=== PATIENT | male | born 1990 | race Caucasian/White ===

== ENCOUNTER 2020-03-08 11:29 | Emergency (ER) | payer OTHER ==
[~2020-03-08] VITALS: Ht 180.3 cm; Wt 81.6 kg
--- NOTE | 2020-03-08 11:39 | NUR ---
ED Nurse Note: Patient walked in to ED from home left leg pain x6 days ago. Denies fall/ injury. Pt stated that he used to sleep in his car x2 months. Pt able to walk with minimal pain.
--- NOTE | 2020-03-08 12:15 | NUR ---
ED Nurse Note: US initiated in the room.
--- NOTE | 2020-03-08 12:42 | Emergency Room Report ---
History of Present Illness General Chief Complaint: Lower Extremity Injury Source: Patient Present Illness HPI 29-year-old male presents ED complaining of left calf pain. Pain is dull, 7 out of 10, nonradiating. States that there was no fall or injury but he was sleeping in his car for a few days and believes that perhaps based on the way he was sleeping he caused the pain in his calf. Denies chest pain or shortness of breath. No other aggravating relieving factors. 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 - 02/29/20 COVID-19 Screening: Negative COVID-19 COVID-19 Testing Source: n Patient History Past Medical History: none Past Surgical History: none Pertinent Family History: none Social History: Denies: smoking, alcohol use, drug use Immunizations: UTD Reviewed Nursing Documentation: PMH: Agreed; PSxH: Agreed Nursing Documentation-PMH Past Medical History: No Stated History Review of Systems All Other Systems: negative except mentioned in HPI Physical Exam Vital Signs Date Time Temp Pulse Resp B/P (MAP) Pulse Ox O2 Delivery O2 Flow Rate FiO2 03/08/20 11:35 98.4 115 19 113/86 (95) 97 Sp02 EP Interpretation: reviewed, normal General Appearance: no apparent distress, alert, GCS 15, non-toxic Head: normocephalic, atraumatic Eyes: bilateral eye normal inspection, bilateral eye PERRL ENT: hearing grossly normal, normal pharynx, no angioedema, normal voice Neck: full range of motion, supple/symm/no masses Respiratory: chest non-tender, lungs clear, normal breath sounds, speaking full sentences Cardiovascular #1: regular rate, rhythm, no edema Cardiovascular #2: 2+ carotid (R), 2+ carotid (L), 2+ radial (R), 2+ radial (L) , 2+ dorsalis pedis (R), 2+ dorsalis pedis (L) Gastrointestinal: normal bowel sounds, non tender, soft, non-distended, no guarding, no rebound Rectal: deferred Genitourinary: normal inspection, no CVA tenderness Musculoskeletal: back normal, normal range of motion, calf tenderness, gait/ station normal Neurologic: alert, motor strength/tone normal, oriented x3, sensory intact, responsive, speech normal Psychiatric: judgement/insight normal, memory normal, mood/affect normal, no suicidal/homicidal ideation Reflexes: 3+ bicep (R), 3+ bicep (L), 3+ tricep (R), 3+ tricep (L), 3+ knee (R) , 3+ knee (L) Lymphatic: no adenopathy Medical Decision Making Diagnostic Impression: Primary Impression: DVT (deep venous thrombosis) Qualified Codes: I82.402 - Acute embolism and thrombosis of unspecified deep veins of left lower extremity ER Course Hospital Course 29-year-old male presents ED with left leg pain and swelling. Differential diagnoses include: DVT, cellulitis, contusion, abscess Clinical course Patient placed on stretcher after initial history and physical I ordered pain medication and DVT ultrasound. There is evidence of acute DVT in LLE Labs reviewed- electrolytes okay, hemoglobin/hematocrit stable, coags ok Patient given Lovenox in ED. I explain to patient he should be admitted. Patient admitted to Dr Mosquera service I. I feel this is a highly complex case requiring extensive working including EKG/Rhythm strip, Xray/CT/US, Blood/urine lab work, repeat exams while in ED, and administration of strong opiates/narcotics for pain control, admission to hospital or close patient follow up. Diagnosis - DVT admitted to floor in serious condition Labs Test 03/08/20 13:00 White Blood Count 9.7 K/UL (4.8-10.8) Red Blood Count 5.01 M/UL (4.70-6.10) Hemoglobin 14.8 G/DL (14.2-18.0) Hematocrit 41.7 % (42.0-52.0) Mean Corpuscular Volume 83 FL (80-99) Mean Corpuscular Hemoglobin 29.6 PG (27.0-31.0) Mean Corpuscular Hemoglobin Concent 35.6 G/DL (32.0-36.0) Red Cell Distribution Width 10.0 % (11.6-14.8) Platelet Count 278 K/UL (150-450) Mean Platelet Volume 7.0 FL (6.5-10.1) Neutrophils (%) (Auto) 73.5 % (45.0-75.0) Lymphocytes (%) (Auto) 14.1 % (20.0-45.0) Monocytes (%) (Auto) 11.5 % (1.0-10.0) Eosinophils (%) (Auto) 0.2 % (0.0-3.0) Basophils (%) (Auto) 0.7 % (0.0-2.0) Prothrombin Time 11.7 SEC (9.30-11.50) Prothromb Time International Ratio 1.1 (0.9-1.1) Activated Partial Thromboplast Time 28 SEC (23-33) Sodium Level 139 MMOL/L (136-145) Potassium Level 4.5 MMOL/L (3.5-5.1) Chloride Level 100 MMOL/L (98-107) Carbon Dioxide Level 27 MMOL/L (21-32) Anion Gap 12 mmol/L (5-15) Blood Urea Nitrogen 8 mg/dL (7-18) Creatinine 1.2 MG/DL (0.55-1.30) Estimat Glomerular Filtration Rate > 60 mL/min (>60) Glucose Level 99 MG/DL (74-106) Calcium Level 9.7 MG/DL (8.5-10.1) Total Bilirubin 1.4 MG/DL (0.2-1.0) Direct Bilirubin 0.5 MG/DL (0.0-0.3) Aspartate Amino Transf (AST/SGOT) 25 U/L (15-37) Alanine Aminotransferase (ALT/SGPT) 33 U/L (12-78) Alkaline Phosphatase 72 U/L (46-116) Total Protein 7.9 G/DL (6.4-8.2) Albumin 4.2 G/DL (3.4-5.0) Globulin 3.7 g/dL Albumin/Globulin Ratio 1.1 (1.0-2.7) CT/MRI/US Diagnostic Results CT/MRI/US Diagnostic Results : Imaging Test Ordered: Venous DVT Impression Impression: Positive for evidence of acute deep venous thrombosis in the upstream neural vein, the popliteal vein, and posterior tibial vein Last Vital Signs Date Time Temp Pulse Resp B/P (MAP) Pulse Ox O2 Delivery O2 Flow Rate FiO2 03/08/20 12:25 98.4 03/08/20 11:35 115 19 113/86 (95) 97 Status: improved Disposition: ADMITTED INPATIENT Condition: Serious Referrals: NON PHYSICIAN (PCP) Ignacio Galan MD March 08, 2020 12:41
--- NOTE | 2020-03-08 12:43 | NUR ---
ED Nurse Note: US done at bedside. per US tech Lt leg is positive on DVT. ERMD made aware.
--- NOTE | 2020-03-08 12:48 | NUR ---
ED Nurse Note: ERMD at bedside explaining US results. pt agreed with admitting plans.
--- NOTE | 2020-03-08 13:00 | NUR ---
ED Nurse Note: blood sent to lab.
[2020-03-08 13:03] LABS: BASOPHILS % (AUTO) 0.7 % (0.0-2.0); EOSINOPHILS % (AUTO) 0.2 % (0.0-3.0); HEMATOCRIT 41.7 % (42.0-52.0); HEMOGLOBIN 14.8 G/DL (14.2-18.0); LYMPHOCYTES % (AUTO) 14.1 % (20.0-45.0); MEAN CORPUSCULAR VOLUME 83 FL (80-99); MONOCYTES % (AUTO) 11.5 % (1.0-10.0); NEUTROPHILS % (AUTO) 73.5 % (45.0-75.0); PLATELET COUNT 278 K/UL (150-450); RED BLOOD COUNT 5.01 M/UL (4.70-6.10); WHITE BLOOD COUNT 9.7 K/UL (4.8-10.8)
[2020-03-08] MEDS ORDERED: CYMBALTA30 MG ORAL (13:06)
[2020-03-08] MEDS ORDERED: TRAZODONE HCL100 MG ORAL (13:06)
[2020-03-08 13:14] LABS: ANION GAP 12 mmol/L (5-15); BLOOD UREA NITROGEN 8 mg/dL (7-18); CALCIUM 9.7 MG/DL (8.5-10.1); CARBON DIOXIDE 27 MMOL/L (21-32); CHLORIDE 100 MMOL/L (98-107); CREATININE 1.2 MG/DL (0.55-1.30); INR 1.1 (0.9-1.1); POTASSIUM 4.5 MMOL/L (3.5-5.1); SODIUM 139 MMOL/L (136-145)
--- NOTE | 2020-03-08 13:23 | Diagnostic Imaging Report ---
Indication: Left leg injury and pain Technique: Grayscale and duplex images of the left lower extremity veins Comparison: none Findings: Grayscale and duplex images demonstrate thrombus within the upstream femoral vein and in the popliteal vein an posterior tibial vein, resulting in absence of flow and noncompressibility. The remaining deep venous segments are patent. The remaining calf veins are patent. Impression: Positive for evidence of acute deep venous thrombosis in the upstream neural vein, the popliteal vein, and posterior tibial vein Emergency room physician is already aware
[2020-03-08 13:26] LABS: ALANINE AMINOTRANSFERASE 33 U/L (12-78); ALBUMIN 4.2 G/DL (3.4-5.0); ALBUMIN/GLOBULIN RATIO 1.1 (1.0-2.7); ALKALINE PHOSPHATASE 72 U/L (46-116); ASPARTATE AMINO TRANSFERASE 25 U/L (15-37); BILIRUBIN,TOTAL 1.4 MG/DL (0.2-1.0)
[2020-03-08 13:28] LABS: BILIRUBIN,DIRECT 0.5 MG/DL (0.0-0.3)
[2020-03-08] MEDS ORDERED: Enoxaparin 80mg Inj SUBQ ONE (14:00)
--- NOTE | 2020-03-08 15:03 | NUR ---
Janak estrada in EDM - 03/08/20 at 1504 by SHAQUILLE ED Nurse Note: [facility] chacko has not assigned a nurse. they will call back in 15 minutes.
--- NOTE | 2020-03-08 15:04 | NUR ---
ED Nurse Note: [facility] LUNDBERG has not assigned a nurse yet. they will call us in 15 minutes.
--- NOTE | 2020-03-08 15:22 | NUR ---
ED Nurse Note: nurse is on break. MS unit will call me back in 5 minutes.
--- NOTE | 2020-03-08 15:34 | NUR ---
ED Nurse Note: report given to DRAGAN Mcarthur.
--- NOTE | 2020-03-08 15:36 | NUR ---
ED Nurse Note: pt transferred to NC with WC in stable condition.
--- NOTE | 2020-03-08 16:00 | NUR ---
NURSE NOTES: Patient admitted from ER. VS taken and recorded. No skin issues noted. Ambulatory. A and O x 4. Belongings accounted for. Orders made by Dr Rider, noted and carried out. Oriented to room and call light. HOB elevated. Bed locked in lowest position. Call light within reach. Will continue plan of care.
[2020-03-08] MEDS: Eliquis 5mg tablet ORAL SCH (17:21)
--- NOTE | 2020-03-08 18:00 | NUR ---
NURSE NOTES: Swabbed for VRE, CRE and MRSA, sent to lab.
--- NOTE | 2020-03-08 19:20 | NUR ---
HAND-OFF: Report given to Manoj ARCHIBALD.
[2020-03-08 20:00] VITALS: BP 129/89
--- NOTE | 2020-03-08 20:00 | NUR ---
NURSE NOTES: Received patient awake in bed, AOx4, on room air, no s/s of acute distress, able to make needs known. IV access intact, dressing reinforced. No c/o pain at this time. Ambulatory with steady gait.
[2020-03-09 04:00] VITALS: BP 137/65
[2020-03-09 07:04] LABS: ANION GAP 11 mmol/L (5-15); BLOOD UREA NITROGEN 9 mg/dL (7-18); CALCIUM 9.4 MG/DL (8.5-10.1); CARBON DIOXIDE 27 MMOL/L (21-32); CHLORIDE 104 MMOL/L (98-107); POTASSIUM 4.6 MMOL/L (3.5-5.1); SODIUM 142 MMOL/L (136-145)
[2020-03-09 07:07] LABS: HEMOGLOBIN 15.1 G/DL (14.2-18.0); MEAN CORPUSCULAR VOLUME 83 FL (80-99); PLATELET COUNT 272 K/UL (150-450); RED BLOOD COUNT 5.04 M/UL (4.70-6.10); RED CELL DISTRIBUTION WIDTH 10.2 % (11.6-14.8); WHITE BLOOD COUNT 6.9 K/UL (4.8-10.8)
[2020-03-09 08:00] VITALS: BP 124/65
--- NOTE | 2020-03-09 08:06 | NUR ---
HAND-OFF: Report given to DRAGAN Valverde.
--- NOTE | 2020-03-09 08:07 | NUR ---
NURSE NOTES: Report received from DRAGAN Cordova. Patient received in bed, awake, alert and oriented x 4, verbal and able to make needs known, skin warm and dry to touch, no SOB noted, bed in lowest position with alarm on and breaks engaged, IV line on left AC present, pt is ambulatory with steady gait, will continue to monitor and proceed with plan of care, call light within reach at all times.
[2020-03-09] MEDS: Eliquis 5mg tablet ORAL SCH ×2 (08:22→17:57)
[2020-03-09] MEDS ORDERED: DULoxetine 30mg cap ORAL SCH (09:00)
--- NOTE | 2020-03-09 11:05 | NUR ---
SENIOR TECHNICAL PROJECT MANAGER NOTE SW received a consult for homelessness. SW met w/ pt and assessed his needs. Pt presents as A&O 4x. PT is currently participating residential substance abuse treatment program at [facility] [address] [id number]. Pt reports he was previously participated for 3 months, then discharged spent two months, then re-admitted to the program a week ago. Per pt, he has hx of ETOH and THC abuse. PT is single, never and has no children. Pt is ambulatory w/o DMEs and independent w/ ADLs. Pt is planning to return [facility] upon DC. PT did not share any concerns/needs at this time. Emergency contact: Gabe Dubon (counselor at [facility]) [phone] & Peg(mother living in [facility]) [phone]
--- NOTE | 2020-03-09 11:25 | NUR ---
*-* NO INSURANCE INFORMATION IN THE BAR UNABLE TO SEND CLINICALS OR REVIEWS *-*
--- NOTE | 2020-03-09 11:42 | NUR ---
*-* INSURANCE *-* ALL AVAILABLE CLINICALS HAVE BEEN FAXED TO: JAKE THORPE F: [phone]
[2020-03-09 12:00] VITALS: BP 121/72
--- NOTE | 2020-03-09 14:09 | NUR ---
CASE MANAGEMENT:INITIAL REVIEW 29 YR OLD MALE WALKED IN TO ED FROM HOME CC;LOWER EXTREMITY INJURY SI;DEEP VEIN THROMBOSIS 98.4 115 19 113/86 97% ON RA T-BILI 1.4 PT 11.7 VENOUS DUPLEX~ Positive for evidence of acute deep venous thrombosis in the upstream neural vein, the popliteal vein, and posterior tibial vein IS;IBUPROFEN PO ONCE LOVENOX SUBQ ONCE ADMITTED TO MED SURG @ 1401 ON 03/09/20 MED SURG STATUS DCP;FROM HOME
[2020-03-09 16:00] VITALS: BP 130/72
--- NOTE | 2020-03-09 16:45 | History and Physical Report ---
DATE OF ADMISSION: 03/08/2020 DATE AND TIME SEEN: 03/09/2020 at 8 a.m. CLERK OF SCALES: Danie Rider MD. CHIEF COMPLAINT: Left leg DVT. BRIEF HISTORY: This is a 29-year-old male, who lives in a treatment center complained 1 week swelling of left calf and redness and painful. He has been living 2 months in a car prior to that. Currently came to [place] last night, diagnosed with left leg DVT, and admitted to medical floor. Currently calm, resting in bed, slight left leg pain. No complaint. REVIEW OF SYSTEMS: No chest pain. No shortness of breath. No nausea, vomiting, or diarrhea. PAST MEDICAL HISTORY: Nothing. PAST SURGICAL HISTORY: Nothing. MEDICATIONS: Include enoxaparin, ibuprofen, Eliquis, Seroquel, Cymbalta. ALLERGIES: None. SOCIAL HISTORY: Positive smoking. No alcohol. No intravenous drug abuse. FAMILY HISTORY: Noncontributory. PHYSICAL EXAMINATION: GENERAL: Sitting on bed. Oriented x3, no acute distress. VITAL SIGNS: Temperature is 98 degrees, pulse 73, respirations 20, blood pressure 124/65. CARDIOVASCULAR: No murmur. LUNGS: Distant and clear. ABDOMEN: Bowel sound positive. Nontender. Nondistended. EXTREMITIES: No cyanosis, clubbing, or edema. Left calf area slightly red, swollen, warm, and tender. LABORATORY DATA: Labs at this time show CBC is normal. BMP is normal. INR is 1.1. ASSESSMENT: Left leg DVT. PLAN: 1. Resume home medications. 2. Anticoagulation. 3. Hematology followup. 4. CBC, BMP in the morning. Dean Wright D.O. DR: KIKO JOB#: [id number] CC:
--- NOTE | 2020-03-09 19:12 | NUR ---
HAND-OFF: Report given to DRAGAN Mora.
--- NOTE | 2020-03-09 19:15 | NUR ---
NURSE NOTES: Pt. received from DRAGAN Valverde. Pt. AAOx4, on room air, breathing is even and unlabored, no complaints of pain at this time. IV L AC 20g intact and patent, saline locked. Pt. ambulatory, instructed on use of call light. Bed is low and locked, side rails x2 up, and call light is in reach.
[2020-03-09 20:00] VITALS: BP 133/67
[2020-03-10] VITALS: BP 129/79
[2020-03-10 04:00] VITALS: BP 119/60
[2020-03-10 06:17] LABS: BASOPHILS % (AUTO) 1.1 % (0.0-2.0); EOSINOPHILS % (AUTO) 2.1 % (0.0-3.0); HEMATOCRIT 39.6 % (42.0-52.0); HEMOGLOBIN 14.3 G/DL (14.2-18.0); LYMPHOCYTES % (AUTO) 30.9 % (20.0-45.0); MEAN CORPUSCULAR VOLUME 83 FL (80-99); MONOCYTES % (AUTO) 13.2 % (1.0-10.0); NEUTROPHILS % (AUTO) 52.8 % (45.0-75.0); PLATELET COUNT 272 K/UL (150-450); RED BLOOD COUNT 4.79 M/UL (4.70-6.10); RED CELL DISTRIBUTION WIDTH 10.2 % (11.6-14.8); WHITE BLOOD COUNT 6.8 K/UL (4.8-10.8)
--- NOTE | 2020-03-10 06:22 | NUR ---
NURSE NOTES: Pt. reported having difficulty having a bowel movement, pt. requesting stool softener. Dr. Wright notified, awaiting orders.
[2020-03-10 06:47] LABS: ANION GAP 11 mmol/L (5-15); BLOOD UREA NITROGEN 8 mg/dL (7-18); CALCIUM 9.3 MG/DL (8.5-10.1); CARBON DIOXIDE 27 MMOL/L (21-32); CHLORIDE 103 MMOL/L (98-107); CREATININE 1.2 MG/DL (0.55-1.30); POTASSIUM 4.3 MMOL/L (3.5-5.1); SODIUM 141 MMOL/L (136-145)
--- NOTE | 2020-03-10 07:16 | NUR ---
HAND-OFF: Report given to DRAGAN Davis and DRAGAN Lewis.
--- NOTE | 2020-03-10 07:47 | NUR ---
NURSE NOTES: Received pt sitting in hospital bed eating breakfast. Pt is AAO x 4, ambulatory, on RA with no s/s of distress. Pain at this time is 2/10 to LLE. L AC 20 g pIV saline lock. LBM 03/09/20. Pt states Motrin helps with the pain. Will continue POC.
[2020-03-10 08:00] VITALS: BP 129/76
--- NOTE | 2020-03-10 08:37 | NUR ---
NURSE NOTES: Per pt, he has been receiving Cymbalta at 40 mg and has 30 mg ordered here. Notified Dr. Wright and received order to change Cymbalta to 40 mg.
[2020-03-10] MEDS: Metamucil Pkt ORAL SCH ×2 (08:44→13:00)
[2020-03-10] MEDS: Eliquis 5mg tablet ORAL SCH (08:44)
[2020-03-10] MEDS ORDERED: Docusate 100mg cap ORAL SCH (09:00)
--- NOTE | 2020-03-10 09:50 | NUR ---
NURSE NOTES: Patient stated that he had small amount of bowel movement after taking metamucil but he still feels like he needs to go more.RN contacted Dr. Wright and Dr. Wright said to call Dr. Skaggs. RN left message to Dr. Skaggs.Awaiting for return call.Patient's Abdomen is soft, no pain.
[2020-03-10] MEDS ORDERED: Miralax 17gm pkt ORAL PRN (10:30)
--- NOTE | 2020-03-10 10:47 | General Progress Note ---
Assessment/Plan Problem List: (1) DVT (deep venous thrombosis) ICD Codes: I82.409 - Acute embolism and thrombosis of unspecified deep veins of unspecified lower extremity SNOMED: 532876470 Qualifiers: Qualified Codes: I82.402 - Acute embolism and thrombosis of unspecified deep veins of left lower extremity Assessment/Plan: on Eliquis on colace add prn miralax and one dose of lactulose today will fu Subjective ROS Limited/Unobtainable: Yes Allergies: Coded Allergies: No Known Allergies (Unverified , 03/08/20) Objective Last 24 Hour Vital Signs Date Time Temp Pulse Resp B/P (MAP) Pulse Ox O2 Delivery O2 Flow Rate FiO2 03/10/20 08:00 97.9 70 19 129/76 (93) 98 03/10/20 04:00 97.7 64 18 119/60 (79) 99 03/10/20 00:00 98.1 62 16 129/79 (96) 99 03/09/20 21:00 Room Air 03/09/20 20:00 97.9 69 18 133/67 (89) 100 03/09/20 16:00 97.9 71 20 130/72 (91) 97 03/09/20 12:00 97.7 71 19 121/72 (88) 98 03/09/20 11:27 98.2 Intake and Output 03/09/20 03/10/20 19:00 07:00 Intake Total 300 ml 500 ml Balance 300 ml 500 ml Intake Oral 300 ml 500 ml # Voids 3 3 Laboratory Tests 03/10/20 05:29: White Blood Count 6.8, Red Blood Count 4.79, Hemoglobin 14.3, Hematocrit 39.6L, Mean Corpuscular Volume 83, Mean Corpuscular Hemoglobin 29.8, Mean Corpuscular Hemoglobin Concent 36.0, Red Cell Distribution Width 10.2L, Platelet Count 272, Mean Platelet Volume 6.8, Neutrophils (%) (Auto) 52.8, Lymphocytes (%) (Auto) 30.9, Monocytes (%) (Auto) 13.2H, Eosinophils (%) (Auto) 2.1, Basophils (%) ( Auto) 1.1, Sodium Level 141, Potassium Level 4.3, Chloride Level 103, Carbon Dioxide Level 27, Anion Gap 11, Blood Urea Nitrogen 8, Creatinine 1.2, Estimat Glomerular Filtration Rate > 60, Glucose Level 85, Calcium Level 9.3 Height (Feet): 5 Height (Inches): 11.00 Weight (Pounds): 180 General Appearance: alert EENT: PERRL/EOMI Neck: supple Cardiovascular: normal rate Respiratory/Chest: lungs clear Abdomen: normal bowel sounds, non tender, soft Extremities: swelling Jassi Skaggs MD March 10, 2020 10:47
[2020-03-10] MEDS ORDERED: Lactulose 20gm/30ml UDC ORAL SCH (11:00)
[2020-03-10 12:00] VITALS: BP 125/66
--- NOTE | 2020-03-10 12:22 | General Progress Note ---
Assessment/Plan Problem List: (1) DVT (deep venous thrombosis) ICD Codes: I82.409 - Acute embolism and thrombosis of unspecified deep veins of unspecified lower extremity SNOMED: 190414975 Qualifiers: Qualified Codes: I82.402 - Acute embolism and thrombosis of unspecified deep veins of left lower extremity (2) Constipation ICD Codes: K59.00 - Constipation, unspecified SNOMED: 97990720 Status: unchanged Assessment/Plan: heme gi f/u anticoag laxitives cbc bmp am dc plan if clear Subjective Constitutional: Reports: weakness Allergies: Coded Allergies: No Known Allergies (Unverified , 03/08/20) All Systems: reviewed and negative except above Subjective calm Objective Last 24 Hour Vital Signs Date Time Temp Pulse Resp B/P (MAP) Pulse Ox O2 Delivery O2 Flow Rate FiO2 03/10/20 08:00 97.9 70 19 129/76 (93) 98 03/10/20 04:00 97.7 64 18 119/60 (79) 99 03/10/20 00:00 98.1 62 16 129/79 (96) 99 03/09/20 21:00 Room Air 03/09/20 20:00 97.9 69 18 133/67 (89) 100 03/09/20 16:00 97.9 71 20 130/72 (91) 97 Intake and Output 03/09/20 03/10/20 19:00 07:00 Intake Total 300 ml 500 ml Balance 300 ml 500 ml Intake Oral 300 ml 500 ml # Voids 3 3 Laboratory Tests 03/10/20 05:29: White Blood Count 6.8, Red Blood Count 4.79, Hemoglobin 14.3, Hematocrit 39.6L, Mean Corpuscular Volume 83, Mean Corpuscular Hemoglobin 29.8, Mean Corpuscular Hemoglobin Concent 36.0, Red Cell Distribution Width 10.2L, Platelet Count 272, Mean Platelet Volume 6.8, Neutrophils (%) (Auto) 52.8, Lymphocytes (%) (Auto) 30.9, Monocytes (%) (Auto) 13.2H, Eosinophils (%) (Auto) 2.1, Basophils (%) ( Auto) 1.1, Sodium Level 141, Potassium Level 4.3, Chloride Level 103, Carbon Dioxide Level 27, Anion Gap 11, Blood Urea Nitrogen 8, Creatinine 1.2, Estimat Glomerular Filtration Rate > 60, Glucose Level 85, Calcium Level 9.3 Height (Feet): 5 Height (Inches): 11.00 Weight (Pounds): 180 General Appearance: alert EENT: normal ENT inspection Neck: normal alignment Cardiovascular: normal peripheral pulses, normal rate, regular rhythm Respiratory/Chest: chest wall non-tender, lungs clear, normal breath sounds Abdomen: normal bowel sounds, non tender, soft Extremities: normal inspection Edema: 1+ Leg (L) Edema: trace edema Neurologic: responsive, motor weakness Skin: normal pigmentation, warm/dry Dean Wright DO March 10, 2020 12:22
--- NOTE | 2020-03-10 13:18 | NUR ---
BANKING AND FINANCE INSTRUCTOR NOTE DR MCCALL GAVE ORDER TO DC HOME IF CLEARED BY DR TERAN (HEME). PER DR TERAN, OK TO DC. DC ENTERED ORDERED.
--- NOTE | 2020-03-10 13:29 | NUR ---
DISCHARGE PLANNING CALL MADE TO RODRIGO STOVER, COORDINATOR AT TREATMENT FACILITY WHERE PATIENT CURRENTLY RESIDES. INFORMED OF PATIENTS DISCHARGE. STATES THEY CURRENTLY DO NOT HAVE STAFF TO EMERGENCY DEPT TECH PATIENT. REQUEST IF PATIENT CAN BE PROVIDED TRANSPORTATION VIA TAXI. HOUSE SUP AWARE OF NEED FOR TAXI VOUCHER.
[2020-03-10] MEDS ORDERED: ELIQUIS5 MG PO (14:29)
--- NOTE | 2020-03-10 15:32 | NUR ---
NURSE NOTES: Pt is stable for DC. Pt is AAOx4, independent with all ADLs, ambulatory without assistance. Skin clear and intact wit no s/s of breakdown. Informed pt that per RN conversation with Dr. Rider, Rx will be sent to the pharmacy of his facility [facility]. Pt educated on DVT and medication to be continued at home. Instructed pt to f/u with PCP for continuation of care and report any s/s of bleeding, fever, chest pain, shortness of breath, or worsening of leg swelling to MD. Pt's belongings list reconciled and accounted for. Pt is arranged for transportation pick-up via taxi with voucher approved by vat house supervisor to go back to [facility]. pIV to L FA removed. Pt escorted by RN to lobby for taxi pick-up.
--- NOTE | 2020-03-11 08:41 | Discharge Summary ---
Discharge Summary Discharge Summary _ DATE OF ADMISSION: 03/08/2020 DATE OF DISCHARGE: 03/10/2020 DISCHARGED BY: Dr. Wright REASON FOR ADMISSION: 30 years old male, who lives in treatment center, presented to emergency department complaining of left calf pain. Pain reported as 7 out of 10, nonradiating and dull. Patient denied any fall or injury. Patient reported sleeping in his car for few days. He denied chest pain or shortness of breath. Upon evaluation patient was slightly tachycardic with heart rate 115 , otherwise pulse oximetry was stable on room air. No fever. Laboratory work-up revealed no leukocytosis , stable hemoglobin, hematocrit and platelet count. Stable electrolytes and renal parameters. Glucose 99. Stable LFT. Venous duplex bilateral lower extremity revealed acute DVT popliteal vein and posterior tibial vein left lower extremity. In emergency department patient received Lovenox and admitted to further management. CONSULTANTS: GI specialist Dr Skaggs [facility] COURSE: Patient admitted. Home medication resumed. Eliquis resumed. Patient complained of constipation. Bowel regimen instituted. In addition, one dose of lactulose was given, following by bowel movement. Supportive care provided. Patient to continue Eliquis at the facility. Patient clinically stabilized and was ready for discharge FINAL DIAGNOSES: Acute DVT left lower extremity Constipation DISCHARGE MEDICATIONS: See Medication Reconciliation list. DISCHARGE INSTRUCTIONS: Patient was discharged. Follow-up with a primary care provider in 1 to 2 weeks. I have been assigned to dictate discharge summary for this account. I was not involved in the patient's management. Darlin Costa NP March 11, 2020 08:41
== END 2020-03-10 15:27 | disposition home or self-care (01) ==
LOC: EMR 11:46 → OBSVTOIN 13:32 → 4E 13:32 → INTOOBSV 13:32 → EDBEDREQ 14:59
DX: I82.432 Acute embolism and thrombosis of left popliteal vein (principal); I82.442 Acute embolism and thrombosis of left tibial vein; K59.00 Constipation, unspecified; Z79.01 Long term (current) use of anticoagulants
CPT/HCPCS: 36415; 80048; 80053; 82248; 85007; 85025; 85610; 85730; 87081; 93971; 96372; J1650; Z7502; 99285